=== PATIENT | female | born 1950 | race Caucasian/White ===

== ENCOUNTER 2017-01-07 07:15 | Outpatient (CLI) | payer OTHER ==
--- NOTE | 2017-01-07 08:53 | DIAGNOSTIC IMAGING REPORT ---
PROCEDURE: CT LOW-DOSE LUNG CA SCREENING CLINICAL INDICATION: TOBACCO ABUSE,COUGH TECHNIQUE: Low-dose helical CT images of the lungs without contrast were obtained and reconstructed at 2.5 mm intervals. MIP reformations in coronal and sagittal planes were created. Radiation dose 1.38 mGy. COMPARISON: Oldest available comparison: None. FINDINGS: NODULES: None. OTHER LUNG FINDINGS: AIRWAY: Branches normally without narrowing or endobronchial nodule. PLEURA: No effusions, thickening, or pneumothorax. AORTA AND GREAT VESSELS: Normal caliber, mild atherosclerotic calcification. PULMONARY ARTERIES: Normal. . HEART AND PERICARDIUM: Normal size without effusion, thickening. LYMPH NODES: No enlarged nodes visible. THORACIC SPINE: No suspicious lesion. Mild degenerative changes of the spine. CHEST WALL: Normal. VISUALIZED UPPER ABDOMEN: Small hiatal hernia. Calcified hepatic granuloma. IMPRESSION: 1. Negative chest CT. Category 1. Continue annual screening with LDCT in 12 months. 2. Small hiatal hernia 3. Calcified hepatic granuloma. All CT scans at this facility use dose modulation, iterative reconstruction, and/or weight-based dosing when appropriate to reduce radiation dose to as low as reasonably achievable.
== END 2017-01-07 23:00 ==
LOC: CT SRH 07:15
DX: R05 Cough (principal); Z12.2 Encounter for screening for malignant neoplasm of respiratory organs; F17.200 Nicotine dependence, unspecified, uncomplicated